=== PATIENT | male | born 2000 | race Caucasian/White ===

== ENCOUNTER 2024-01-09 01:01 | Emergency (ER) | payer OTHER, SELFPAY ==
[2024-01-09 01:10] VITALS: BP 144/100; PULSE 133; RESP 18; TEMP 36.9; O2SAT 98; BMI 33.3
[2024-01-09] MEDS: diphenhydrAMINE HCL 25 MG CAPSULE 50 MG PO (01:23)
--- NOTE | 2024-01-09 01:41 | ED.ASTHMA ---
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 Patient states that he has run out of his rescue inhaler. Related Data Previous Rx's Medication Instructions Recorded albuterol sulfate 90 mcg/actuation 2 puff inhalation Q4-6H PRN 01/09/24 aerosol inhaler (Ventolin HFA) shortness of breath or wheezing #8.5 grams prednisone 50 mg tablet 50 mg PO DAILY 4 days #4 tabs 01/09/24 Allergies Allergy/AdvReac Type Severity Reaction Status Date / Time No Known Allergies Allergy Unverified 08/08/20 16:41 Review of Systems Review of Systems: Pertinent positives and negatives as stated in HPI COUNT INCLUDES THE [facility] Past Medical History Source: nursing notes reviewed Social History Social History Advance Directives: No Advance Directives Information Provided: No Physical Exam Vital Signs: Vital Signs: Last Vital Signs Temp 98.5 F 01/09/24 01:10 Pulse 123 H 01/09/24 01:47 Resp 18 01/09/24 01:47 BP 144/100 H 01/09/24 01:10 Pulse Ox 98 01/09/24 01:10 O2 Del Method Room Air 01/09/24 01:10 BMI result Body Mass Index 33.3 VITAL SIGNS: Reviewed. GENERAL: Well developed, well nourished, in no acute distress. HEAD: Normocephalic/atraumatic EYES: PERRLA, EOMI EARS: Ext canals without abnormality NOSE: Nares patent bilateral OROPHARYNX: no oral lesions noted, posterior pharynx clear NECK: Supple, no adenopathy LUNGS: Tachypnea, coughing, expiratory wheeze, decreased breath sounds on right greater than left. SpO2<98> CARDIOVASCULAR: Regular rate and rhythm without noted murmurs ABDOMEN: Soft, non-tender, non-distended with bowel sounds. MUSCULOSKELETAL: No tenderness, deformities, or effusions noted on gross inspection. EXTREMITIES: No cyanosis, clubbing or edema. SKIN: Inspection of the skin reveals no rashes NEUROLOGIC: Alert and oriented x 4. Strength and sensation to light touch were grossly intact x 4. Medications Administered Discontinued Medications Generic Name Dose Route Start Last Admin Trade Name Freq PRN Reason Stop Dose Admin Albuterol Sulfate 7.5 mg/ 10 mg 01/09/24 01:44 01/09/24 01:46 Albuterol Sulfate 2.5 mg INHALE 01/09/24 01:45 10 mg ONCE ONE Administration Diphenhydramine HCl 50 mg 01/09/24 01:20 01/09/24 01:23 Diphenhydramine Hcl 25 Mg Capsule PO 01/09/24 01:21 50 mg ONCE ONE Administration Prednisone 50 mg 01/09/24 01:37 01/09/24 02:02 Prednisone 10 Mg Tablet PO 01/09/24 01:38 50 mg ONCE ONE Administration Medical Decision Making Medical Decision Making MDM Narrative: 23-year-old male with history and clinical presentation consistent with allergy induced asthma exacerbation. Activated ED bronch protocol, administered oral steroids and gave 50 mg of Benadryl. Patient is not noted to be hypoxic. Signed out to DR Lema. Differential Diagnosis Differential Diagnoses: The differential diagnosis associated with the presentation includes Please see the discussion above Admission/Observation Consideration of admission/observation: Escalation of care including admission/observation considered Please see the discussion above Critical Care Time Critical Care Time Critical Care Time: Yes Total Critical Care Time: 45 Attestation: I personally attest to this time spent taking care of the patient. Discharge Plan Discharge Clinical Impression: Allergic reaction, Asthma exacerbation Patient Disposition: Still a Patient Instructions: Asthma (ED) Additional Instructions: 1. Please complete the short course of steroids that you have been prescribed. 2. Please follow-up with primary care doctor in the next 1-2 days. Return to the ER for any worsening symptoms. Prescriptions: New albuterol sulfate [Ventolin HFA] 90 mcg/actuation HFA aerosol inhaler 2 puff inhalation Q4-6H PRN (Reason: shortness of breath or wheezing) Qty: 8.5 0RF prednisone 50 mg tablet 50 mg PO DAILY 4 Days Qty: 4 0RF Referrals: Greg Rodriguez MD [Primary Care Provider] -
[2024-01-09] MEDS: Albuterol Sulfate 7.5 MG, Albuterol Sulfate (0.083%) 2.5 MG 10 MG INHALE (01:46)
[2024-01-09 01:47] VITALS: PULSE 123; RESP 18; O2SAT 98
[2024-01-09] MEDS: predniSONE 10 MG TABLET 50 MG PO (02:02)
[2024-01-09 03:50] VITALS: BP 134/76; PULSE 102; RESP 20; TEMP 36.4; O2SAT 98
== END 2024-01-09 03:52 | disposition home or self-care (01) ==
PROVIDERS: Emergency Provider Emergency Medicine; PCP Pediatrics
DX: J45.901 Unspecified asthma with (acute) exacerbation (principal); R06.02 Shortness of breath
CPT/HCPCS: 94640; 99284